=== PATIENT | female | born 1960 | race African-American/Black ===

== ENCOUNTER 2017-07-18 09:00 | Outpatient (CLI) | payer OTHER ==
--- NOTE | 2017-07-18 15:17 | EKG ---
Test Reason : Blood Pressure : / mmHG Vent. Rate : 047 BPM Atrial Rate : 047 BPM P-R Int : 182 ms QRS Dur : 098 ms QT Int : 464 ms P-R-T Axes : 044 028 005 degrees QTc Int : 410 ms Marked sinus bradycardia Cannot rule out Anterior infarct , age undetermined Abnormal ECG Confirmed by PAULA DUEÑAS ([id number]) on 07/18/2017 3:17:13 PM Referred By: NICK Confirmed By:PAULA DUEÑAS
[2017-07-18 15:37] LABS: Mean Platelet Volume 8.1 fL (7.4-10.4); Red Blood Cell (RBC) Count 4.79 mill/uL (4.20-5.40); White Blood Cell (WBC) Count 4.4 thou/uL (4.8-10.8)
[2017-07-18 15:45] LABS: PTT 30.6 SEC (22.9-36.1)
[2017-07-18 15:49] LABS: Prothrombin Time 13.6 SEC (12.0-14.7)
[2017-07-18 16:02] LABS: Anion Gap 13 mmol/L (10-20); BUN (Urea Nitrogen) 17 mg/dL (9.8-20.1); Calc. Creatinine Clearance 0 mL/min (70-130); Calcium 9.3 mg/dL (7.8-10.44); Carbon Dioxide 30 mmol/L (22-29); Chloride 101 mmol/L (98-107); Estimated GFR-MDRD Greater than 90
== END 2017-07-18 09:01 | disposition home or self-care (01) ==
LOC: LABBT 09:00
PROVIDERS: ATTEND Surgery
DX: Z01.818 Encounter for other preprocedural examination (principal); M48.061 Spinal stenosis, lumbar region without neurogenic claudication; M54.16 Radiculopathy, lumbar region
CPT/HCPCS: 80048; 85027; 85610; 85730; 93005; 93010

== ENCOUNTER 2017-09-14 16:57 | Outpatient (CLI) | payer OTHER ==
[2017-09-14 17:43] LABS: #Eosinphils 0.4 thou/uL (0.0-0.7); #Lymphocytes 1.4 thou/uL (1.20-3.40); #Monocytes 0.4 thou/uL (0.11-0.59); #Neutrophils 3.2 thou/uL (1.40-6.50); %Basophils 0.8 % (0.0-1.0); %Eosinophils 7.1 % (0.0-10.0); %Lymphocytes 26.4 % (21.0-51.0); %Monocytes 7.6 % (0.0-10.0); Hematocrit 38.1 % (36.0-47.0); Mean Platelet Volume 7.5 fL (7.4-10.4); White Blood Cell (WBC) Count 5.4 thou/uL (4.8-10.8)
[2017-09-14 17:50] LABS: PTT 31.3 SEC (22.9-36.1); Prothrombin Time 13.7 SEC (12.0-14.7)
[2017-09-14 18:17] LABS: Anion Gap 9 mmol/L (10-20); BUN (Urea Nitrogen) 17 mg/dL (9.8-20.1); Calc. Creatinine Clearance 0 mL/min (70-130); Calcium 9.5 mg/dL (7.8-10.44); Carbon Dioxide 30 mmol/L (22-29); Chloride 101 mmol/L (98-107); Estimated GFR-MDRD Greater than 90
== END 2017-09-14 16:58 | disposition home or self-care (01) ==
LOC: LABBT 16:57
PROVIDERS: ATTEND Surgery
DX: Z01.818 Encounter for other preprocedural examination (principal); M48.061 Spinal stenosis, lumbar region without neurogenic claudication; M54.16 Radiculopathy, lumbar region
CPT/HCPCS: 80048; 85025; 85610; 85730

== ENCOUNTER 2017-09-15 07:29 | Day surgery (SDC) | payer OTHER ==
[2017-09-14 08:56] VITALS: BMI 44.4
[2017-09-15] MEDS ORDERED: Fentanyl 100 MCG/2 ML VIAL ONE ×3 (07:50→13:01)
[2017-09-15] MEDS ORDERED: Midazolam HCl 2 mg/2 ml Vial ONE (07:50)
[2017-09-15] MEDS ORDERED: Albuterol Sulfate 1.25 MG/3 ML NEB ONE (08:53)
[2017-09-15] MEDS ORDERED: CEFAZOLIN/Water 2 GM/20 ML SYRINGE ONE (08:53)
[2017-09-15] MEDS ORDERED: Thrombin 5000 UNITS/5 ML VIAL ONE (09:14)
[2017-09-15] MEDS ORDERED: Bacitracin Zinc Ointment 30 gm TUBE ONE (09:14)
[2017-09-15] MEDS ORDERED: Sodium Chloride 0.9% 10 ML ONE (09:15)
[2017-09-15] MEDS ORDERED: Ondansetron HCl/PF 4 MG/2 ML Vial IVP PRN ×2 (11:54→13:17)
[2017-09-15] MEDS ORDERED: Promethazine HCl 25 MG/ML VIAL IM PRN ×2 (11:54→13:17)
[2017-09-15] MEDS ORDERED: Promethazine HCl 25 MG/ML VIAL SLOW IVP PRN (11:54)
[2017-09-15] MEDS ORDERED: SUGAMMADEX SODIUM 500 MG/5 ML VIAL ONE (12:33)
[2017-09-15] MEDS ORDERED: tiZANidine HCl 4 MG TAB PO PRN (13:17)
[2017-09-15] MEDS ORDERED: Acetaminophen 325 MG TAB PO PRN (13:17)
[2017-09-15] MEDS ORDERED: Morphine 4 MG/ML VIAL SLOW IVP PRN (13:17)
[2017-09-15] MEDS ORDERED: Fleet Enema 133 ML BOT PR PRN (13:17)
[2017-09-15] MEDS ORDERED: HYDROcodone/Acetaminophen 7.5/325 mg Tablet PO PRN (13:17)
[2017-09-15] MEDS ORDERED: traMADol HCl 50 MG TAB PO PRN (13:17)
[2017-09-15] MEDS ORDERED: Mag-Al 1200 mg/1200 mg/30 ML UDCUP PO PRN (13:17)
[2017-09-15] MEDS ORDERED: Milk Of Magnesia 30 ML UDCUP PO PRN (13:17)
[2017-09-15] MEDS ORDERED: Bisacodyl 10 MG SUPP PR PRN (13:17)
--- NOTE | 2017-09-15 13:23 | OP ---
PREPROCEDURE DIAGNOSES: Lumbar stenosis, low back and leg pain. POSTPROCEDURE DIAGNOSES: Lumbar stenosis, low back and leg pain. SURGEON: Michael Walter M.D. PUBLIC AFFAIRS OFFICER: Mikie Smith PA-C. PROCEDURES: L3-L4, L4-L5 laminectomies, partial facetectomies, foraminotomies L3, L4, L5 nerve roots . DESCRIPTION OF PROCEDURE: After informed consent was obtained from the patient, the patient brought to OR 12. Proper patient pause and identification was carried out. She was placed under excellent g eneral endotracheal anesthesia and positioned prone on the operating room table. All appropriate poi nts were padded. We identified the L3, L4, L5 dorsal spines and lamina and linear dariel was made over this region. The patient had a prior L5-S1 wound and we incorporated this wound into our current wo und. This area was sterilely cleansed, prepared, and draped. Proper patient pause and identificatio n was carried out. The wound was then opened with a combination of sharp, monopolar and blunt dissec tion. We exposed the L3, L4, L5 dorsal spines and lamina and a localization film confirmed our area of interest. We then performed an L3, L4, L5 laminectomies, partial facetectomies and foraminotomies over the L3, L4, L5 nerve roots. We obtained excellent decompression of the common dural tube and t he nerve roots. The wound was copiously irrigated and then closed in anatomic layers following the s prinkling of vancomycin powder. The patient then emerged from anesthesia.
[2017-09-15] MEDS ORDERED: Lidocaine 1% PF 5 ML VIAL ONE (15:27)
[2017-09-15] MEDS ORDERED: Ondansetron HCl/PF 4 MG/2 ML Vial ONE (15:27)
[2017-09-15] MEDS ORDERED: Vecuronium 10 MG VIAL ONE (15:27)
[2017-09-15] MEDS ORDERED: Ketorolac Tromethamine 30 MG/ML VIAL ONE (15:27)
[2017-09-15] MEDS ORDERED: Glycopyrrolate 0.2 MG/ML 5 ML SYRINGE ONE (15:27)
[2017-09-15] MEDS ORDERED: Propofol 200 MG/20 ML VIAL ONE (15:27)
[2017-09-15] MEDS ORDERED: Dexamethasone 20 MG/5 ML VIAL ONE (15:27)
[2017-09-15] MEDS ORDERED: Nitroglycerin 0.4 MG TAB (25 Tab Bottle) SL PRN (15:33)
[2017-09-15] MEDS ORDERED: Cyanocobalamin (Vitamin B-12) 1,000 MCG TAB PO PRN (15:33)
[2017-09-15] MEDS: CEFAZOLIN/Water 2 GM/20 ML SYRINGE SLOW IVP SCH (17:18)
[2017-09-15] MEDS: Sodium Chloride 0.9% 1,000 ML IV SCH (17:19)
[2017-09-15] MEDS: Carvedilol 25 MG TAB PO SCH (18:47)
[2017-09-15] MEDS: Acetaminophen/Codeine 30-300mg Tablet PO PRN (20:33)
[2017-09-15] MEDS: Fish Oil 1,000 MG CAP PO SCH (20:33)
[2017-09-15] MEDS ORDERED: metFORMIN XR 500 MG TAB PO SCH (21:00)
[2017-09-15] MEDS ORDERED: Potassium Chloride 10 MEQ TAB PO SCH (21:00)
[2017-09-15] MEDS ORDERED: Simvastatin 40 MG TAB PO SCH (21:00)
[2017-09-15] MEDS ORDERED: Chlorthalidone 25 MG TAB PO SCH (21:00)
[2017-09-16] MEDS: CEFAZOLIN/Water 2 GM/20 ML SYRINGE SLOW IVP SCH (00:20)
[2017-09-16] MEDS: Sodium Chloride 0.9% 1,000 ML IV SCH (00:20)
[2017-09-16] MEDS: Acetaminophen/Codeine 30-300mg Tablet PO PRN (00:20)
[2017-09-16 08:11] VITALS: BP 153/86; TEMP 97.7
[2017-09-16] MEDS: Fish Oil 1,000 MG CAP PO SCH (08:17)
[2017-09-16] MEDS: Carvedilol 25 MG TAB PO SCH (08:18)
[2017-09-16] MEDS ORDERED: Valsartan 80 MG TAB PO SCH (09:00)
[2017-09-16] MEDS ORDERED: Estradiol 1 MG TAB PO SCH (09:00)
[2017-09-16] MEDS ORDERED: Amlodipine 10 MG TAB PO SCH (09:00)
--- NOTE | 2017-09-16 09:23 | PRG ---
DATE OF SERVICE: 09/16/2017 This is Mikie Smith PA-C dictating for Michael Walter M.D. SUBJECTIVE: Ms. Garg is now postoperative day #1, having undergone L3-L5 laminectomy yesterday. The patient states she is doing well postoperatively. She has some incisional back pain, but otherwi se has no bilateral lower extremity pain. Her incision is clean, dry, and closed with sutures. Ther e is a significant amount of keloid scarring at the incision; however, it does appear to be healing w ell without again signs of drainage. OBJECTIVE: The patient is at neurologic baseline with full strength in the bilateral lower extremiti es. She is walking well. PLAN: She is stable for discharge at this time and has met all criteria. She is pleased with her ou tcome postoperatively and understands to call the office with any additional questions or concerns.
--- NOTE | 2017-09-21 | DIS ---
Mikie Smith PA-C, dictating for Dr. Michael Walter. DATE OF ADMISSION: 09/15/2017 DATE OF DISCHARGE: 09/16/2017 DISCHARGE DIAGNOSES: 1. Low back pain with lumbar radiculopathy. 2. Lumbar spinal stenosis. HOSPITAL COURSE: Ms. Garg was admitted to [facility] to undergo an elective L3-L5 christine ctomies, partial facetectomies, and foraminotomies with Dr. Walter. The patient's case was without c omplication and she recovered overnight on the surgical floor. Appropriate outpatient followup appoi ntments were scheduled as well as appropriate patient education was provided. At the time of dischar ge, the patient was pleased with her outcome postoperatively.
== END 2017-09-16 12:15 | disposition home or self-care (01) ==
LOC: SDC 07:29 → SURG A 14:29 → SDC 09-16 12:15
PROVIDERS: ATTEND Surgery
PROC: 01NB0ZZ Release Lumbar Nerve, Open Approach (ICD-10-PCS; principal; 2017-09-15)
DX: M48.061 Spinal stenosis, lumbar region without neurogenic claudication (principal); I25.10 Atherosclerotic heart disease of native coronary artery without angina pectoris; I10 Essential (primary) hypertension; E11.9 Type 2 diabetes mellitus without complications; K21.9 Gastro-esophageal reflux disease without esophagitis; Z79.82 Long term (current) use of aspirin; Z79.84 Long term (current) use of oral hypoglycemic drugs; Z79.890 Hormone replacement therapy; Z79.899 Other long term (current) drug therapy; Z91.048 Other nonmedicinal substance allergy status; Z95.1 Presence of aortocoronary bypass graft; Z90.710 Acquired absence of both cervix and uterus; Z98.890 Other specified postprocedural states
CPT/HCPCS: 36416; 76001; 96374; A4216; J1100; J1170; J1885; J2001; J2250; J2405; J2704; J3010; J3370; J3490

== ENCOUNTER 2017-11-04 13:25 | Outpatient (CLI) | payer OTHER | END 2017-11-04 13:26 | disposition home or self-care (01) | LOC: BICMAMMO 13:25 | PROVIDERS: ATTEND Obstetrics & Gynecology | DX: Z12.31 Encounter for screening mammogram for malignant neoplasm of breast (principal) | CPT/HCPCS: 77063; 77067 ==

== ENCOUNTER 2019-01-05 07:38 | Outpatient (CLI) | payer OTHER ==
--- NOTE | 2019-01-05 09:46 | CT ---
CT OF ABDOMEN AND PELVIS PERFORMED WITH CONTRAST ENHANCEMENT: HISTORY: Abdominal and left groin pain. COMPARISON: A 01/22/2013 CT angio of abdomen. FINDINGS: The lung bases are clear. The liver and spleen show no focal abnormality. Suggestion of some fatty change to the liver. The p ancreas and gallbladder regions are normal. Right and left adrenal glands and right and left kidneys are normal in size. There is no significant periaortic or mesenteric adenopathy. A mild amount of stool is seen within the colon. CT OF PELVIS PERFORMED WITH CONTRAST ENHANCEMENT: Fat-containing paraumbilical hernia is seen. The appendix is normal. There is no pelvic lymphadenop athy or mass. Minimal diverticulosis of the sigmoid colon is seen. IMPRESSION: 1. No acute abnormalities of the abdomen or pelvis. 2. Minimal sigmoid diverticulosis. Other incidental findings as noted above. POS: [facility]
[2019-01-05] MEDS ORDERED: ISOVUE-370 76%-LOCM 1 ML ONE (15:05)
== END 2019-01-05 07:39 | disposition home or self-care (01) ==
LOC: BICCT 07:38
PROVIDERS: ATTEND Surgery
DX: R10.30 Lower abdominal pain, unspecified (principal); K57.30 Diverticulosis of large intestine without perforation or abscess without bleeding; K42.9 Umbilical hernia without obstruction or gangrene; R19.5 Other fecal abnormalities
CPT/HCPCS: 74177; 82565; Q9966